=== PATIENT | male | born 1985 | race Hispanic/Latino ===

== ENCOUNTER 2017-05-08 09:42 | Emergency (ER) | payer OTHER ==
[2017-05-08] MEDS ORDERED: KEPPRA 1,000 MG/NS 0.75% 100ML 1,000 MG/100 ML BAG IV ONE (10:15)
--- NOTE | 2017-05-08 10:23 | Emergency Department Report ---
ED Seizure HPI - General Chief Complaint: Seizure Stated Complaint: SEIZURE Time Seen by Provider: 05/08/17 10:04 Source: patient, EMS Mode of arrival: Stretcher Limitations: No Limitations - History of Present Illness Initial Comments: Patient is 32 years all male history of seizure, he is not on any seizure medication. Patient stated last seizure he had was one and a half years ago. Patient presented to the ER via EMS with one episode of generalized tonic- clonic seizure. Patient was confused after the seizure for approximately 15-20 minutes but able to carry a meaningful conversation with me when I examine him in the ER. Patient sustained a head injury and a facial injury may lead abrasion to forehead and to nose. Patient also complaining of lower back pain secondary to the injury from the fall. Patient denied any recent fever, headache numbness or tingling sensation, no weakness. MD Complaint: seizure -: This morning Description of Episode: loss of consciousness, tonic-clonic movement, post- event confusion Witnessed:: Yes Trauma: Yes Seizure History: known seizure disorder Place: home Possible Precipitating Event: other (not any antiseizure medication) - Related Data Previous Rx's Medication Instructions Recorded Last Taken Type Ondansetron [Zofran Odt] 4 mg PO Q8HR PRN #14 tab.rapdis 05/08/17 Unknown Rx levETIRAcetam [Keppra TAB] 500 mg PO BID #60 tablet 05/08/17 Unknown Rx traMADol [Ultram] 50 mg PO Q6HR PRN #14 tablet 05/08/17 Unknown Rx Allergies Allergy/AdvReac Type Severity Reaction Status Date / Time No Known Allergies Allergy Verified 05/08/17 13:03 ED Review of Systems ROS: Stated complaint: SEIZURE Other details as noted in HPI Comment: All other systems reviewed and negative Constitutional: denies: chills, fever Respiratory: denies: cough, orthopnea, shortness of breath, SOB with exertion, SOB at rest, stridor, wheezing Cardiovascular: denies: chest pain, palpitations, dyspnea on exertion Gastrointestinal: denies: abdominal pain, nausea, vomiting, diarrhea, constipation, hematemesis, hematochezia Genitourinary: denies: urgency, dysuria, frequency, hematuria Musculoskeletal: back pain Skin: denies: lesions Neurological: denies: headache, weakness, numbness, paresthesias, confusion, abnormal gait ED Past Medical Hx - Past Medical History Hx Seizures: Yes - Surgical History Past Surgical History?: Yes Hx Appendectomy: Yes (2003) - Social History Smoking Status: Never Smoker Substance Use Type: Alcohol - Medications Home Medications: Home Medications Medication Instructions Recorded Confirmed Last Taken Type Ondansetron [Zofran Odt] 4 mg PO Q8HR PRN #14 tab.rapdis 05/08/17 Unknown Rx levETIRAcetam [Keppra TAB] 500 mg PO BID #60 tablet 05/08/17 Unknown Rx traMADol [Ultram] 50 mg PO Q6HR PRN #14 tablet 05/08/17 Unknown Rx ED Physical Exam - General Limitations: No Limitations General appearance: alert, in no apparent distress - Head Head exam: Present: other (abrasion to the forehead and to the nose.) - ENT ENT exam: Present: normal exam, normal orophraynx, mucous membranes moist - Neck Neck exam: Present: normal inspection, full ROM. Absent: tenderness, meningismus, lymphadenopathy, thyromegaly - Respiratory Respiratory exam: Present: normal lung sounds bilaterally. Absent: respiratory distress, wheezes, rales, rhonchi, stridor, chest wall tenderness, accessory muscle use, decreased breath sounds, prolonged expiratory - Cardiovascular Cardiovascular Exam: Present: regular rate, normal rhythm, normal heart sounds - GI/Abdominal GI/Abdominal exam: Present: soft, normal bowel sounds. Absent: distended, tenderness, guarding, rebound, rigid, organomegaly, mass, bruit, pulsatile mass , hernia - Extremities Exam Extremities exam: Present: normal inspection, full ROM, normal capillary refill - Back Exam Back exam: Present: normal inspection, full ROM, vertebral tenderness. Absent: CVA tenderness (R), CVA tenderness (L), muscle spasm - Neurological Exam Neurological exam: Present: alert, oriented X3, CN II-XII intact, normal gait - Skin Skin exam: Present: warm, intact, normal color. Absent: cyanosis ED Course Vital Signs 05/08/17 13:04 Respiratory 16 Rate O2 Sat by Pulse 94 Oximetry ED Medical Decision Making - Lab Data Result diagrams: 05/08/17 10:04 05/08/17 10:04 - Radiology Data Radiology results: report reviewed Referring Physician: ANJELICA DUPREE Patient Name: JEFFERY MONTERROSO Date of : 1985 Sex: Male Report Date: 2017-05-08 Report Status: Finalized Findings [address] [address] Cat Scan Report Signed Patient: JEFFERY MONTERROSO MR#: [id number] : 1985 Acct:[id number] Age/Sex: 32 / M ADM Date: 05/08/17 Loc: ED Attending Dr: Ordering Physician: ANJELICA DUPREE Date of Service: 05/08/17 Procedure(s): CT facial bones wo con Accession Number(s): [id number] cc: ANJELICA DUPREE CT FACIAL BONES WITHOUT CONTRAST: HISTORY: Seizure, fall, facial injury. TECHNIQUE: Helical CT images with sagittal and coronal CT reformations. FINDINGS: All paranasal sinuses are clear. No sinus wall fracture, fluid level or opacification. The orbital cavities are symmetric and intact. The mandible is intact. The skull base and upper cervical spine demonstrate no evidence for acute injury. IMPRESSION: Unremarkable CT of the facial bones. Transcribed By: TTR Dictated By: WENDI FALLON JR, MD Electronically Authenticated By: WENDI FALLON JR, MD Signed Date/Time: 05/08/17 113 DD/ 113 TD/TT: 05/08/17 113 Referring Physician: ANJELICA DUPREE Patient Name: JEFFERY MONTERROSO Date of : 1985 Sex: Male Report Date: 2017-05-08 Report Status: Finalized Findings [address] [address] Cat Scan Report Signed Patient: JEFFERY MONTERROSO MR#: [id number] : 1985 Acct:[id number] Age/Sex: 32 / M ADM Date: 05/08/17 Loc: ED Attending Dr: Ordering Physician: ANJELICA DUPREE Date of Service: 05/08/17 Procedure(s): CT head/brain wo con Accession Number(s): [id number] cc: MOHAMED H. ELBASHA CT HEAD WITHOUT CONTRAST: HISTORY: Seizure, head injury. TECHNIQUE: Sequential 2.5mm CT images. COMPARISON: none. FINDINGS: Cerebral Parenchyma: Within normal limits. Cerebellum: Within normal limits. Brainstem: Within normal limits. Ventricles: Normal. Sella: Normal. Extra-axial spaces: Normal. Basal Cisterns: Normal. Intracranial Hemorrhage: None. Midline Shift: None. Calvarium: Normal. Sinuses: Normal. Mastoid Air Cells: Normal. Visualized Orbits: Normal. IMPRESSION: Cranial CT scan within normal limits. Transcribed By: TTR Dictated By: WENDI FALLON JR, MD Electronically Authenticated By: WENDI FALLON JR, MD Signed Date/Time: 05/08/17 112 DD/ 28 TD/TT: 05/08/171128 [facility] [address] [place] [address] XRay Report Signed Patient: JEFFERY MONTERROSO MR#: [id number] : 1985 Acct:[id number] Age/Sex: 32 / M ADM Date: 05/08/17 Loc: ED Attending Dr: Ordering Physician: ANJELICA DUPREE Date of Service: 05/08/17 Procedure(s): XR spine lumbosacral 2-3V Accession Number(s): [id number] cc: ANJELICA DUPREE Fluoro Time In Minutes: LUMBOSACRAL SPINE, 3 VIEWS: History: Back pain Findings: Superior end plate deformities are identified at T11, T12 and L1. Loss of height at these levels is estimated at 25% or less. The remaining lumbar vertebra are normal height. The disc spaces are within normal limits. The posterior elements are in appropriate relationship. Chronic bilateral pars defects at L4 are suspected. The sacrum and SI joints are unremarkable. Impression: Superior endplate fractures at T11, T12 and L1. Transcribed By: TTR Dictated By: WENDI FALLON JR, MD Electronically Authenticated By: WENDI FALLON JR, MD Signed Date/Time: 05/08/17 1047 DD/ 1046 TD/TT: 05/08/17 1047 - Medical Decision Making Discuss with Dr. Cabral from orthopedics, he advised to prescribe pain medication and ask him to follow-up with him in his office. Critical care attestation.: If time is entered above; I have spent that time in minutes in the direct care of this critically ill patient, excluding procedure time. ED Disposition Clinical Impression: Seizure, Lumbar verterbral fracture, traumatic Disposition: DC-01 TO HOME OR SELFCARE Is pt being admited?: No Condition: Stable Instructions: Thoracolumbar Fracture (ED), Recurrent Seizures Adult (ED) Prescriptions: levETIRAcetam [Keppra TAB] 500 mg PO BID #60 tablet Ondansetron [Zofran Odt] 4 mg PO Q8HR PRN #14 tab.rapdis PRN Reason: Nausea And Vomiting traMADol [Ultram] 50 mg PO Q6HR PRN #14 tablet PRN Reason: Pain Referrals: SONAL CABRAL MD [Staff Physician] - 3-5 Days
[2017-05-08 10:38] LABS: Hematocrit 41.4 % (35.5-45.6); Hemoglobin 14.5 gm/dl (11.8-15.2); Mean Corpuscular HGB Conc 35 % (32-34); Mean Corpuscular Hemoglobin 35 pg (28-32); Mean Corpuscular Volume 100 fl (84-94); Platelet Count 140 K/mm3 (140-440); Red Blood Count 4.14 M/mm3 (3.65-5.03); Red Cell Distribution Width 15.8 % (13.2-15.2)
[2017-05-08 10:46] LABS: BUN/Creatinine Ratio 6; Blood Urea Nitrogen 5 mg/dL (9-20); Calcium 9.3 mg/dL (8.4-10.2); Hemolysis Index 25
--- NOTE | 2017-05-08 10:54 | XRay Report ---
LUMBOSACRAL SPINE, 3 VIEWS: History: Back pain Findings: Superior end plate deformities are identified at T11, T12 and L1. Loss of height at these levels is estimated at 25% or less. The remaining lumbar vertebra are normal height. The disc spaces are within normal limits. The posterior elements are in appropriate relationship. Chronic bilateral pars defects at L4 are suspected. The sacrum and SI joints are unremarkable. Impression: Superior endplate fractures at T11, T12 and L1.
[2017-05-08 10:58] LABS: Albumin 4.7 g/dL (3.9-5); Bilirubin,Direct 0.3 mg/dL (0-0.2)
--- NOTE | 2017-05-08 11:35 | Cat Scan Report ---
CT HEAD WITHOUT CONTRAST: HISTORY: Seizure, head injury. TECHNIQUE: Sequential 2.5mm CT images. COMPARISON: none. FINDINGS: Cerebral Parenchyma: Within normal limits. Cerebellum: Within normal limits. Brainstem: Within normal limits. Ventricles: Normal. Sella: Normal. Extra-axial spaces: Normal. Basal Cisterns: Normal. Intracranial Hemorrhage: None. Midline Shift: None. Calvarium: Normal. Sinuses: Normal. Mastoid Air Cells: Normal. Visualized Orbits: Normal. IMPRESSION: Cranial CT scan within normal limits.
--- NOTE | 2017-05-08 11:37 | Cat Scan Report ---
CT FACIAL BONES WITHOUT CONTRAST: HISTORY: Seizure, fall, facial injury. TECHNIQUE: Helical CT images with sagittal and coronal CT reformations. FINDINGS: All paranasal sinuses are clear. No sinus wall fracture, fluid level or opacification. The orbital cavities are symmetric and intact. The mandible is intact. The skull base and upper cervical spine demonstrate no evidence for acute injury. IMPRESSION: Unremarkable CT of the facial bones.
[2017-05-08] MEDS ORDERED: ZOFRAN IV ONE (14:59)
[2017-05-08] MEDS ORDERED: MORPHINE IV ONE (14:59)
[2017-05-08 19:53] VITALS: BP 136/92
== END 2017-05-08 16:45 | disposition home or self-care (01) ==
LOC: ED 09:42
DX: S32.009A Unspecified fracture of unspecified lumbar vertebra, initial encounter for closed fracture (principal); R56.9 Unspecified convulsions; X58.XXXA Exposure to other specified factors, initial encounter; Y93.89 Activity, other specified; Y92.89 Other specified places as the place of occurrence of the external cause; Y99.8 Other external cause status
CPT/HCPCS: 36415; 70450; 70486; 72100; 80048; 80074; 82962; 85027; 96365; 96375; 99285; G0480; J1953; J2270; J2405; 80320